=== PATIENT | female | born 1945 | race Caucasian/White ===

== ENCOUNTER 2018-08-15 22:41 | Observation (INO) | payer MEDICARE, OTHER ==
[2018-08-15] MEDS ORDERED: METHYLPREDNISOLONE SOD SUCC/PF 125 MG/2 ML VIAL IV ONE (22:43)
[2018-08-15] MEDS ORDERED: ALBUTEROL SULFATE/IPRATROPIUM 3 ML NEBU IH ONE (22:44)
[2018-08-15] MEDS: NORMAL SALINE 1,000 ML IV PRN (22:58)
[2018-08-15 23:07] LABS: Hematocrit 44.6 % (37.0-47.0); Hemoglobin 14.6 gm/dL (12.5-16.0); Mean Cell Volume 84.2 fl (78-100); Mean Corpuscular Hemoglobin 27.5 pg (27-31); Mean Corpuscular Hgb Conc 32.7 g/dl (32-36); Mean Platelet Volume 10.1 fl (8-12.5); Neutrophil # 4.8 K/mm3 (1.3-6.0); Platelet Count 199 K/mm3 (150-450); White Blood Count 10.3 K/mm3 (4.0-10.5)
[2018-08-15 23:26] LABS: Albumin * 3.9 gm/dl (3.4-5.0); Bilirubin, Total 0.6 mg/dL (0.0-1.1); Ca. Corrected For Albumin 8.5 mg/dL (8.4-10.2); Calcium * 8.7 mg/dL (7.9-10.9); Potassium 3.5 mmol/L (3.4-4.6); Total Protein 7.6 gm/dL (6.2-8.2)
[2018-08-15 23:27] LABS: Troponin I 0.046 ng/mL (0.00-0.10)
[2018-08-15 23:30] LABS: Carbon Dioxide 31.5 mmol/L (24-32.6)
[2018-08-15] MEDS ORDERED: ALBUTEROL SULFATE 2.5 MG/0.5 ML VIAL.NEB IH ONE ×2 (23:40→23:41)
--- NOTE | 2018-08-16 00:14 | ERNOTE ---
Dyspnea - Date Date of Service: 08/16/18 - General Time Seen by Provider: 08/15/18 22:50 - Immun/Allergies/Home Medications Immunizations: IMMUNIZATION HX Immunizations Up to Date Yes History of Influenza Vaccine No Hx Pneumococcal Vaccination No Allergies/Adverse Reactions: Allergies dimenhydrinate [From Dramamine] Allergy (Verified 08/15/18 22:53) ketorolac [From Toradol] Allergy (Verified 08/15/18 22:53) Penicillins Allergy (Verified 08/15/18 22:53) Home Medications: HOME MEDICATIONS Albuterol Sulfate [Proair Hfa] 2 puff IH QID PRN 07/19/18 [Last Taken Unknown] Fluticasone/Salmeterol [Advair 100-50 Diskus] 1 puff IH BID 07/19/18 [Last Taken Unknown] Ipratropium/Albuterol Sulfate [Combivent Respimat Inhal [place]] 1 puff IH QID #1 inhaler 07/19/18 [Last Taken Unknown] Levothyroxine Sodium [Levoxyl] 75 mcg PO 07/19/18 [Last Taken Unknown] - History of Present Illness Narrative: patient presents to ed in severe respiratory distress getting progressively worse over last seveeral weeks, know hx of copd Severity: severe Treatment [employer]: none Initiating event: Reports: upper resp illness Frequency of episodes: Reports: frequent episodes Modifying Factors - (Improves): Reports: nothing Modifying Factors (Worsens): Reports: activity, lying down Associated Symptoms-Dyspnea: Reports: fever/chills, chest pain/discomfort, wheezing Prior Treatment: Reports: previous episodes Review of Systems - Narrative Narrative: reported severe respiratory distress - Review of Systems Constitutional: Present: See HPI EYE: Present: no symptoms reported ENT: Present: no symptoms reported Respiratory: Present: See HPI, shortness of breath, cough, orthopnea, wheezing Cardiology: Present: no symptoms reported Gastrointestinal/Abdominal: Present: no symptoms reported Genitourinary: Present: no symptoms reported Musculoskeletal: Present: no symptoms reported Skin: Present: no symptoms reported Neurological: Present: no symptoms reported Endocrine: Present: no symptoms reported Hematologic/Lymphatic: Present: no symptoms reported Psych: Present: no symptoms reported All Other Systems: All systems neg except as marked Medical History (Last Reviewed 08/15/18 @ 22:54 by Va Quevedo) Asthma Hypercholesteremia Hypertension Hypothyroid Surgical History: Surgical History (Last Reviewed 08/15/18 @ 22:54 by Va Quevedo) History of back surgery (Acute) S/P cholecystectomy (Acute) History of hip replacement Family History: Family History (Last Updated 08/15/18 @ 23:05 by Va Quevedo) Father Lung cancer Mother Cancer Social History: Preferred Language Amharic Smoking Status Former smoker Alcohol Use none Drug Use none Physical Exam - Physical Exam General Appearance: Present: severe distress, anxious Head Exam: Present: normal inspection, no evidence of injury Eye Exam: Normal inspection: bilateral, PERRL: bilateral, EOMI: bilateral Ears, Nose, Throat: Present: normal ENT inspection, normal pharynx Neck: Present: normal inspection, nontender Respiratory: Present: respiratory distress, accessory muscle use, decreased breath sounds, expiration (prolonged), rales, rhonchi, wheezing Cardiovascular/Chest: Present: tachycardia Gastrointestinal/Abdominal: Present: normal bowel sounds, nontender, nondistended, soft, no organomegaly Back Exam: Present: normal inspection, normal range of motion, no CVA tenderness, no vertebral tenderness Extremity Exam: Present: normal inspection, non-tender, normal range of motion, no edema Neurological Exam: Present: alert, oriented, normal mood/affect, no motor/sensory deficits Skin Exam: Present: cyanosis, pallor Lymphatic Exam: Present: no adenopathy ED Progress - Date and Time Seen: Date and Time: 08/16/18 00:13 patient improved, case discussed with dr serna , accepted for admission - Results and Orders Patient's Lab Results:: I have reviewed the patient's lab results. - Vital Signs Patient's Vital Signs:: I have reviewed the patient's vital signs. Vital Signs: Vital Signs 08/15/18 22:43 08/15/18 22:46 08/15/18 23:07 Temperature 36.5 C Pulse Rate 117 H 108 H 95 Respiratory Rate 36 H 36 H 28 H Blood Pressure 168/95 H 134/69 O2 Sat by Pulse Oximetry 72 L 98 92 L 08/15/18 23:42 08/15/18 23:46 08/15/18 23:52 Temperature Pulse Rate 78 70 96 Respiratory Rate 20 24 H 18 Blood Pressure 142/86 O2 Sat by Pulse Oximetry 94 95 - EKG EKG: supraventricular tachycardia EKG read: Interp. by me - X-Ray X-Ray #1 X-Ray: chest - copd Interpretation: Interp. by me - Progress/Reassessment Chief Complaint: Dyspnea Progress:: Improved - Transfer of Care Expected Disposition: Admit Plan - Plan Plan: to be admitted Departure Clinical Impression: COPD exacerbation - Departure Disposition: Still a patient Condition: Serious
[2018-08-16] MEDS ORDERED: NORMAL SALINE 1,000 ML IV PRN (00:16)
[2018-08-16] MEDS ORDERED: METHYLPREDNISOLONE SOD SUCC/PF 40 MG/ML VIAL IV SCH (00:30)
[2018-08-16] MEDS ORDERED: AZITHROMYCIN 500 MG in DEXTROSE 5 % IN WATER 250 ML IV SCH ×2 (00:30)
[2018-08-16] MEDS: ALBUTEROL SULFATE 2.5 MG/0.5 ML VIAL.NEB IH PRN ×2 (03:23→09:32)
[2018-08-16] MEDS: METHYLPREDNISOLONE SOD SUCC/PF 40 MG/ML VIAL IV SCH ×4 (04:01→22:01)
[2018-08-16] MEDS: NORMAL SALINE 1,000 ML IV PRN ×2 (07:44→15:41)
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
[2018-08-16] MEDS ORDERED: ALPRAZolam 0.25 MG TABLET PO PRN (11:53)
[2018-08-16] MEDS: LOSARTAN POTASSIUM 50 MG TABLET PO SCH (12:09)
[2018-08-16] MEDS: HYDROCHLOROTHIAZIDE 12.5 MG CAPSULE PO SCH (12:09)
[2018-08-16] MEDS: SERTRALINE HCL 50 MG TABLET PO SCH (12:09)
[2018-08-16] MEDS: amLODIPine BESYLATE 5 MG TABLET PO SCH (12:10)
[2018-08-16] MEDS: LEVOTHYROXINE SODIUM 50 MCG TABLET PO SCH (12:10)
[2018-08-16] MEDS: ALBUTEROL SULFATE/IPRATROPIUM 3 ML NEBU IH SCH ×2 (17:52→18:00)
[2018-08-16] MEDS: ACETAMINOPHEN 500 MG TABLET PO PRN (19:50)
[2018-08-17] MEDS: NORMAL SALINE 1,000 ML IV PRN ×2 (00:29→08:42)
[2018-08-17] MEDS: ALBUTEROL SULFATE 2.5 MG/0.5 ML VIAL.NEB IH PRN (02:37)
[2018-08-17] MEDS: ACETAMINOPHEN 500 MG TABLET PO PRN (03:27)
[2018-08-17] MEDS: METHYLPREDNISOLONE SOD SUCC/PF 40 MG/ML VIAL IV SCH ×2 (04:43→09:41)
[2018-08-17] MEDS ORDERED: DILTIAZEM HCL 5 MG/ML VIAL IV ONE (04:45)
[2018-08-17] MEDS: ALBUTEROL SULFATE/IPRATROPIUM 3 ML NEBU IH SCH ×2 (06:08→18:19)
[2018-08-17] MEDS: LEVOTHYROXINE SODIUM 50 MCG TABLET PO SCH (06:29)
[2018-08-17] MEDS: HYDROCHLOROTHIAZIDE 12.5 MG CAPSULE PO SCH (08:38)
[2018-08-17] MEDS: LOSARTAN POTASSIUM 50 MG TABLET PO SCH (08:38)
[2018-08-17] MEDS: amLODIPine BESYLATE 5 MG TABLET PO SCH (08:38)
[2018-08-17] MEDS: SERTRALINE HCL 50 MG TABLET PO SCH (08:38)
[2018-08-17] MEDS ORDERED: AZITHROMYCIN 250 MG TABLET PO SCH (09:00)
[2018-08-17] MEDS ORDERED: DILTIAZEM HCL 120 MG CAP.SR.24H PO SCH (10:45)
[2018-08-17 11:03] LABS: Hematocrit 37.3 % (37.0-47.0); Mean Cell Volume 86.1 fl (78-100); Mean Corpuscular Hemoglobin 27.7 pg (27-31); Mean Corpuscular Hgb Conc 32.2 g/dl (32-36); Mean Platelet Volume 11.1 fl (8-12.5); Neutrophil # 14.4 K/mm3 (1.3-6.0); Neutrophil % 90.2 % (42-75.0); Platelet Count 189 K/mm3 (150-450); Red Blood Count 4.33 M/mm3 (4.2-5.4); Red Cell Distribution Width 14.8 % (11.5-14.0); White Blood Count 15.9 K/mm3 (4.0-10.5)
[2018-08-17 11:17] LABS: Albumin * 3.4 gm/dl (3.4-5.0); Anion Gap 10.5 mmol/L (6.8-13.8); BUN/Creatinine Ratio 14.8 (9.0-21.6); Bilirubin, Total 0.5 mg/dL (0.0-1.1); Ca. Corrected For Albumin 8.7 mg/dL (8.4-10.2); Calcium * 8.5 mg/dL (7.9-10.9); Carbon Dioxide 24.9 mmol/L (24-32.6); Potassium 3.4 mmol/L (3.4-4.6); TSH * 0.293 uIU/mL (0.358-3.74); Total Protein 6.7 gm/dL (6.2-8.2); Troponin I 0.091 ng/mL (0.00-0.10)
[2018-08-17] MEDS ORDERED: predniSONE 20 MG TABLET PO SCH (13:00)
--- NOTE | 2018-08-17 16:39 | DS ---
(1) Atrial fibrillation Problem: Acute (2) COPD exacerbation Problem: Acute Description of Stay: Svetlana is a 73 yo female that was admitted with COPD exacerbation and acute respiratory failure. She was treated with breathing treatments, IV solumedrol, and azithromycin. Respiratory failure was short lived as she was weaned off oxygen fairly quickly and remained of oxygen. Due to whooping sounding cough a respiratory panel was completed but was negative. IV solumedrol was changed to prednisone. During hospital course the patient was noted to go into atrial fibrillation but was asymptomatic. She was started on Diltiazem as her heart rate was elevated above 100. She will be started on coumadin and follow up in coumadin clinic. Discussed atrial fibrillation with patient she reports having occasional palpitations and fluttering symptoms in the past. She also denies feeling any abnormal symptoms at this time, although telemetry shows atrial fibrillation. As I am unsure if this is new onset atrial fibrillation or the observation of a paroxysmal event she will be anticoagulated with coumadin and started on diltiazem for rate control. She will follow up with her PCP and will schedule her an appointment with cardiology. She will follow with coumadin clinic for dose management. She will complete azithromycin and prednisone as outpatient. Procedures Performed: none Results and Findings: Pending Mircobiology Results 08/15/18 23:15 Blood Blood Culture - Preliminary NO GROWTH 24 HOURS 08/15/18 23:15 Blood Blood Culture - Preliminary NO GROWTH 24 HOURS Lab Pending Results 08/15/18 22:48: WBC 10.3, RBC 5.30, Hgb 14.6, Hct 44.6, MCV 84.2, MCH 27.5, MCHC 32.7, RDW 14.0, Plt Count 199, MPV 10.1, Immature Gran % (Auto) 0.30, Immature Gran # (Auto) 0.03, Neutrophils % 47.0, Lymphocytes % 38.2, Monocytes % 7.5, Eosinophils % 6.6 H, Basophils % 0.4, Nucleated RBC % 0.0, Neutrophils # 4.8, Lymphocytes # 3.92 H, Monocytes # 0.8, Eosinophils # 0.7, Absolute Basophils 0.0 08/15/18 22:57: pCO2 41.0, pO2 73.7 L, HCO3 23.8, Total CO2 25.0 H, Base Excess -1.3, ABG pH 7.38, ABG O2 Sat (Measured) 94.6 08/15/18 23:00: Sodium 139, Plasma Sodium 140, Potassium 3.5, Chloride 102, Carbon Dioxide 31.5, Anion Gap 9.0, BUN 18, Creatinine 1.20, Est GFR (Non-Af Amer) 47 L, BUN/Creatinine Ratio 15.0, Random Glucose 134 H, Calcium 8.7, Calcium Adj for Albumin 8.5, Total Bilirubin 0.6, AST 36, ALT 34, Alkaline Phosphatase 103, Troponin I 0.046, B-Natriuretic Peptide 540 H, Total Protein 7.6, Albumin 3.9 08/16/18 11:00: Chlamy pneumoniae PCR Not detected, Adenovirus (PCR) Not detected, B. pertussis DNA (PCR) Not detected, Coronavirus OC43 (PCR) Not detected, Coronavirus HKU1 (PCR) Not detected, Coronavirus 229E (PCR) Not detected, Coronavirus NL63 (PCR) Not detected, Human Metapneumovir PCR Not detected, Influenza A (H1) PCR Not detected, Influenza A (H1N1) PCR Not detected, Influenza A (H3) PCR Not detected, Influenza B (RT-PCR) Not detected, M. pneumoniae (PCR) Not detected, Parainfluenza 1 (PCR) Not detected, Pa rainfluenza 2 (PCR) Not detected, Parainfluenza 3 (PCR) Not detected, Parainfluenza 4 (PCR) Not detected, RSV (PCR) Not detected, Rhinovirus (PCR) Not detected 08/17/18 10:48: WBC 15.9 H D, RBC 4.33, Hgb 12.0 L, Hct 37.3, MCV 86.1, MCH 27.7, MCHC 32.2, RDW 14.8 H, Plt Count 189, MPV 11.1, Immature Gran % (Auto) 0.90 H, Immature Gran # (Auto) 0.14 H, Neutrophils % 90.2 H, Lymphocytes % 5.5 L, Monocytes % 3.3, Eosinophils % 0.0, Basophils % 0.1, Nucleated RBC % 0.0, Neutrophils # 14.4 H, Lymphocytes # 0.87 L, Monocytes # 0.5, Eosinophils # 0.0, Absolute Basophils 0.0 08/17/18 10:48: Sodium 138, Plasma Sodium 139, Potassium 3.4, Chloride 106, Carbon Dioxide 24.9, Anion Gap 10.5, BUN 17, Creatinine 1.15, Est GFR (Non-Af Amer) 49 L, BUN/Creatinine Ratio 14.8, Random Glucose 172 H, Calcium 8.5, Calcium Adj for Albumin 8.7, Total Bilirubin 0.5, AST 32, ALT 36, Alkaline Phosphatase 79, Troponin I 0.091, Total Protein 6.7, Albumin 3.4, TSH 0.293 L Discharge Location: Home Disposition: Home self-care Condition: Fair Discharge Activity: Activity as tolerated Discharge Diet: General/regular food Referrals: Keo Pond MD [Associate] - (Next available cardiology for new atrial fibrillation) Niesha De Oliveira [Pharmacy] - 08/20/18 () DOC,OUTSIDE [Non Staff Physicians] - One Week Problem Oriented Discharge Instructions to Patient/Family: Atrial Fibrillation, [id number], Chronic Obstructive Pulmonary Disease Exacerbation, [id number] Additional Patient Instructions (free text): -Please make TCM appointment unless chcf discharge. Thank you! Therese @ [phone]. Prescriptions (Any new or edited meds): Azithromycin [Zithromax] 500 mg PO DAILY #2 tablet Diltiazem HCl [Cardizem Cd] 120 mg PO Q24H #30 cap.sr.24h predniSONE [Prednisone] 40 mg PO DAILY #14 tablet Warfarin Sodium [Coumadin] 5 mg PO DAILY #30 tablet Complete Home Medications List: Complete Home Medication List: Albuterol Sulfate [Proair Hfa] 2 puff IH QID PRN 07/19/18 Ipratropium/Albuterol Sulfate [Combivent Respimat 20-100 Mcg] 1 puff IH QID #1 inhaler 07/19/18 Levothyroxine Sodium [Levoxyl] 50 mcg PO DAILY 07/19/18 ALPRAZolam [Xanax] 0.25 mg PO DAILY PRN 08/16/18 Fluticasone/Salmeterol [Advair 100-50 Diskus] 1 puff IH BID 08/16/18 Irbesartan/Hydrochlorothiazide [Avalide 300-12.5 mg Tablet] 1 each PO DAILY 08/16/18 Sertraline HCl [Zoloft] 50 mg PO DAILY 08/16/18 amLODIPine BESYLATE [Norvasc] 5 mg PO DAILY 08/16/18 Azithromycin [Zithromax] 500 mg PO DAILY #2 tablet 08/17/18 Diltiazem HCl [Cardizem Cd] 120 mg PO Q24H #30 cap.sr.24h 08/17/18 Warfarin Sodium [Coumadin] 5 mg PO DAILY #30 tablet 08/17/18 predniSONE [Prednisone] 40 mg PO DAILY #14 tablet 08/17/18
[2018-08-17 18:31] VITALS: BP 163/82
== END 2018-08-17 18:00 | disposition home or self-care (01) ==
LOC: ER 22:41 → INTOOBSV 08-16 00:10 → MS 08-16 00:10
PROVIDERS: ADMIT Family Medicine; ATTEND Family Medicine
DX: Z23 Encounter for immunization; I10 Essential (primary) hypertension; Z68.41 Body mass index [BMI] 40.0-44.9, adult; E78.00 Pure hypercholesterolemia, unspecified; I48.0 Paroxysmal atrial fibrillation; J44.1 Chronic obstructive pulmonary disease with (acute) exacerbation; E03.9 Hypothyroidism, unspecified
CPT/HCPCS: 36415; 36600; 71010; 71045; 80053; 82803; 83519; 83880; 84443; 84484; 85025; 87040; 87633; 90686; 93005; 94640; 94664; 94760; 96361; 96365; 96374; 96375; 96376; 99285; G0008; G0378